=== PATIENT | female | born 1975 | race Hispanic/Latino ===

== ENCOUNTER → 2022-01-11 | Outpatient (CLI) | payer OTHER | END | disposition home or self-care (01) | LOC: SHCH 08:47 | PROVIDERS: ATTEND Internal Medicine Cardiovascular Disease | DX: I25.10 Atherosclerotic heart disease of native coronary artery without angina pectoris (principal) | CPT/HCPCS: 93306 ==

== ENCOUNTER 2024-06-28 16:59 | Emergency (ER) | payer OTHER, MEDICARE ==
[~2024-06-28] VITALS: Ht 157.5 cm; Wt 86.2 kg
[~2024-06-28 16:59] MED LIST: CEPH500C2 PO; DICY-20 PO; ONDA-104 PO; PANT40TA54 PO
--- NOTE | 2024-06-28 17:17 | ERN ---
ED Note History of Present Illness Stated Complaint: FEVER, HEADACHE, NAUSEA, ABD PAIN Time Seen by MD: 17:22 Time Seen by Midlevel: 17:05 Dictation: Ms. Joy is a 48-year-old female with a history of polycystic kidney disease/renal transplant, CKD, obesity, and GERD who presented to the emergency department this evening for evaluation of flu symptoms. Reports five days of fatigue, general weakness, fever, chills, headache, lower abdominal pain, nausea, vomiting, urinary frequency, and pruritus. She is status post renal transplant one year ago secondary to polycystic kidney disease. She denies having ill contacts or recent travel. She has taken no medications for her symptoms. She denies having shortness of breath, cough, chest pain, palpitations, edema, hematemesis, constipation, diarrhea, melena, hematochezia, hematuria, or dizziness. PCP: Dr Alondra Flores[facility] Trimmer Operator: Dr. Bel James Allergies: Coded Allergies: No Known Drug Allergies (Unverified Allergy, Unknown, 07/19/22) Home Meds Active Scripts Cephalexin (Cephalexin) 500 Mg Capsule, 500 MG PO BID, #14 CAP 0 Refills Prov:TOMY GUERRIER GIFT WRAPPER 08/05/22 Pantoprazole Sodium (Pantoprazole Sodium) 40 Mg Tablet.dr, 40 MG PO DAILY, #30 TAB 2 Refills Prov:TOMY GUERRIER GIFT WRAPPER 08/05/22 Dicyclomine HCl (Dicyclomine HCl) 10 Mg Capsule, 10 MG PO TIDP PRN for ABDOMINAL PAIN, #21 CAP 0 Refills Prov:TOMY GUERRIER GIFT WRAPPER 08/05/22 Ondansetron HCl (Ondansetron HCl) 4 Mg Tablet, 4 MG PO TIDP PRN for NAUSEA, #21 TAB 0 Refills Prov:TOMY GUERRIER GIFT WRAPPER 08/05/22 Past Medical History Past Medical History: GERD, Renal Disese, Renal Failure, Other Additional Past Medical Hx: CKD Surgical History: Appendectomy, Cholecystectomy, Other Surgical History Other: L KIDNEY RMEOVAL, UMBLICAL HERNIA, CATHETER FOR DILAYSIS PLACEMENT. PSYCH History: no pertinent psych hx Social History: Negative, Lives with family RN Note Reviewed/Agreed w/PFSH: Yes Review of System Dictation REVIEW OF SYSTEMS: CONSTITUTIONAL: Patient denies sweats and weight changes. Reports fatigue and general weakness. Reports fever and chills. EYES: Patient denies any visual symptoms. EARS, NOSE, AND THROAT: No difficulties with hearing. No symptoms of rhinitis or sore throat. CARDIOVASCULAR: Patient denies chest pains, palpitations, orthopnea and paroxysmal nocturnal dyspnea. RESPIRATORY: No dyspnea on exertion, no wheezing or cough. GI: No hematemesis, diarrhea, constipation, abdominal pain, hematochezia or melena. Reports lower abdominal pain with nausea and vomiting. : No urinary hesitancy or dribbling. No nocturia. No abnormal urethral discharge. No hematuria. S/P renal transplant 1 year ago. Reports frequent urination. MUSCULOSKELETAL: No myalgias or arthralgias. NEUROLOGIC: No chronic headaches, no seizures. Patient denies numbness, tingling or weakness. Reports dull headache. PSYCHIATRIC: Patient denies problems with mood disturbance. No problems with a nxiety. ENDOCRINE: No excessive urination or excessive thirst. DERMATOLOGIC: Patient denies any rashes or wounds. Reports itchy skin. Initial Vital Sign VS Vital Signs Date Time Temp Pulse Resp B/P (MAP) Pulse Ox O2 Delivery O2 Flow Rate FiO2 06/28/24 17:07 98.2 87 18 153/88 99 Room Air 0 06/28/24 17:25 21 Physical Exam Dictation Vital signs: Reviewed. Afebrile. Constitutional: No acute distress. Non-toxic appearing. Pleasant. Head/Face: Normocephalic, atraumatic. Eyes: Periorbital areas with no swelling, redness, or edema. Lids and lashes are normal. Conjunctival injection is absent. Sclera anicteric. Pupils equal, round, reactive to light. ENT: Pinnas intact and no signs of trauma or erythema. Ear canals clear and no discharge. TMs no erythema. No nasal discharge or bleeding noted. Oropharynx with no exudate, redness, swelling, masses, exudates, or evidence of obstruction. Uvula midline. Mucous membranes moist. Neck: Trachea midline, no masses palpated, and no cervical lymphadenopathy. No swelling. Supple, full range of motion. Chest/Axilla: No tenderness, no crepitus, no paradoxical movement, no retractions. Cardiovascular: Regular rate, regular rhythm, no murmur, no gallops. Symmetric pulses. No peripheral edema. BP elevated 153/88. Respiratory: Respirations even and unlabored. Lung sounds clear; no wheezes, rales or rhonchi. Room air spO2 99%. Gastrointestinal: Obese. No distention is appreciated. Bowel sounds are normal. No mass or organomegaly . Slight tenderness lower quadrants. No rebound. No rigidity. No voluntary or involuntary guarding. No Rizo's sign. Neurological: Normal speech, gross motor function intact, gross sensory function intact. No focal weakness/Paresthesia. Musculoskeletal/Extremities: All extremities have full range of motion, no pain or tenderness on palpation. Symmetric pulses. Integumentary: Intact. Skin is normal color, warm and dry. Cap refill less than 3 seconds. Results (Laboratory/Radiology) Laboratory/Radiology Laboratory Tests Test 06/28/24 17:18 White Blood Count 10.0 K/uL (4.8-10.8) Red Blood Count 4.71 MIL/uL (4.00-5.50) Hemoglobin 14.2 g/dL (12.0-16.0) Hematocrit 42.6 % (36-48) Mean Corpuscular Volume 90.4 fL (79-99) Mean Corpuscular Hemoglobin 30.1 pg (27.0-33.0) Mean Corpuscular Hemoglobin Concent 33.3 g/dL (32.0-36.0) Red Cell Distribution Width 12.4 % (11.0-15.5) Platelet Count 249 K/uL (130-400) Mean Platelet Volume 11.6 fL (7.5-10.5) H Immature Granulocyte % (Auto) 0.4 % (0-1) Neutrophils (%) (Auto) 84.4 % (40.0-77.0) H Lymphocytes (%) (Auto) 9.5 % (21.0-51.0) L Monocytes (%) (Auto) 5.3 % (3.0-13.0) Eosinophils (%) (Auto) 0.2 % (0.0-8.0) Basophils (%) (Auto) 0.2 % (0.0-5.0) Neutrophils # (Auto) 8.4 K/uL (1.8-7.7) H Lymphocytes # (Auto) 1.0 K/uL (1.0-4.8) Monocytes # (Auto) 0.5 K/uL (0.1-1.0) Eosinophils # (Auto) 0.02 K/uL (0.00-0.70) Basophils # (Auto) 0.02 K/uL (0.00-0.20) Absolute Immature Granulocyte (auto 0.04 K/uL (0-1) Nucleated Red Blood Cells 0.0 % (0.0-0.19) White Cell Morphology Comment See comments Urine Color LIGHT-YELLOW (YELLOW) Urine Appearance CLEAR (CLEAR) Urine pH 5.5 (5.0-8.0) Urine Specific [place] 1.012 (1.001-1.031) Urine Protein NEGATIVE mg/dL (NEGATIVE) Urine Glucose (UA) NEGATIVE mg/dL (NEGATIVE) Urine Ketones NEGATIVE mg/dL (NEGATIVE) Urine Occult Blood NEGATIVE (NEGATIVE) Urine Nitrate NEGATIVE (NEGATIVE) Urine Bilirubin NEGATIVE mg/dL (NEGATIVE) Urine Urobilinogen 0.2 mg/dL (0.2-1.0) Urine Leukocyte Esterase NEGATIVE Julián/uL Urine RBC None /HPF (0-1) Urine WBC 0-1 /HPF (0-1) Urine Squamous Epithelial Cells RARE /HPF (0-2) Urine Bacteria None /HPF (None Seen) Urine HCG, Qualitative NEGATIVE (NEGATIVE) Sodium Level 141 mmol/L (136-145) Potassium Level 3.9 mmol/L (3.5-5.1) Chloride Level 103 mmol/L (101-111) Carbon Dioxide Level 28 mmol/L (21-32) Blood Urea Nitrogen 31 mg/dL (7-18) H Creatinine 0.9 mg/dL (0.5-1.0) Glomerular Filtration Rate Calc 78 mL/min (>90) Random Glucose 115 mg/dL (70-105) H Total Calcium 9.9 mg/dL (8.5-10.1) Influenza Type A Antigen Negative For Type A Influenza Type B Antigen Negative For Type B SARS-CoV-2, RNA, NAAT NEGATIVE SARS CoV-2 Labs Reviewed?: Yes ED Course ED Course Orders Procedure Category Date Status Time Urinalysis Profile LAB 06/28/24 Complete 17:07 ,Urine Test LAB 06/28/24 Complete 17:07 Influenza Type A & B, LAB 06/28/24 Complete Rapid 17:07 Covid Rna Naat LAB 06/28/24 Complete 17:07 Cbc With Differential LAB 06/28/24 Complete 17:16 Basic Metabolic Panel LAB 06/28/24 Complete 17:16 0.9%Nacl 1000ml (Ns PHA 06/28/24 Complete 1000ml) 18:30 Current Medications Medications (Trade) Dose Ordered Sig/Preethi Route PRN Reason Start Time Stop Time Status Last Admin Dose Admin Sodium Chloride 1,000 ml @ 0 mls/hr ONCE ONCE IV 06/28/24 18:30 06/28/24 18:31 DC 06/28/24 18:21 Vital Signs Date Time Temp Pulse Resp B/P (MAP) Pulse Ox O2 Delivery O2 Flow Rate FiO2 06/28/24: 98.2 97 18 153/88 99 Room Air* 0 21 06/28/24 17:07 98.2 87 18 153/88 99 Room Air 0 Uneventful ED course. Vital signs initially with blood pressure 153/88; repeat 113/64. Remains afebrile. Laboratory findings as noted below. No elevation of WBCs. H&H are stable. BUN 30, BUN/CR ratio 34.4, and glucose 115. COVID and influenza A/B negative. Her abdominal pain minimal; declines CT. While in the ED she received NS 1000ml IV as bolus. Headache resolved. She states she is feeling better. Medical Decision Making MDM MDM: Differential diagnosis: COVID, influenza, UTI Rationale: Tests considered and ordered secondary to shared decision making include: Lab Previous outside records reviewed: Old ER visits. Risk of complication and/or morbidity or mortality of patient management: None Medications-Per medication reconciliation Need for hospitalization: Patient does not meet criteria for hospitalization. Need for emergency major/minor surgery: No There are no social concerns with this patient. Prescription drug management: OTC Tylenol Prescriptions will include symptomatic care Patient's prior external medical records from other ER visits were reviewed by juan short as indicated. Prior testing and results from previous visits were reviewed. Prior tests were taken into account with medical decision making and resource utilization, independent historian/historians were used to obtain complete medical history. I independently interpreted the test that were performed, results were reviewed by me and considered findings on radiology if ordered. Medical management and examination interpretation discussions were had by me with other qualified healthcare professionals as indicated for the patient's care. DX & DISP Disposition: Discharge Departure Impression: Primary Impression: Viral illness Additional Impressions: Post viral inflammatory response, Dehydration Condition: Stable Additional Instructions: Rest at home. Drink plenty of fluids. OTC Tylenol as needed for discomfort/fever. Follow up with your PCP at the [facility] (take copy of your labs). Return to the emergency department for any worsening of symptoms: Uncontrolled fever, worsening pain of the abdomen, nausea/vomiting. Referrals: JUAN FLORES MD (PCP) Time of Disposition: 18:26 MARVEL STONE NP June 28, 2024 17:16
[2024-06-28 17:43] LABS: ADD UA MICROSCOPIC YES; APPEARANCE,URINE CLEAR (CLEAR); BILIRUBIN,URINE NEGATIVE (NEGATIVE); COLOR,URINE LIGHT-YELLOW (YELLOW); GLUCOSE, URINE (UA) NEGATIVE (NEGATIVE); KETONES,URINE NEGATIVE (NEGATIVE); LEUKOCYTE ESTERASE ,URINE NEGATIVE Leu/uL (NEGATIVE); NITRATE,URINE NEGATIVE (NEGATIVE); OCCULT BLOOD,URINE NEGATIVE (NEGATIVE); PH,URINE 5.5 (5.0-8.0); PROTEIN,URINE NEGATIVE (NEGATIVE); UROBILINOGEN,URINE 0.2 mg/dL (0.2-1.0)
[2024-06-28 17:44] LABS: BASOPHILS # (AUTO) 0.02 K/uL (0.00-0.20); BASOPHILS % (AUTO) 0.2 % (0.0-5.0); EOSINOPHILS # (AUTO) 0.02 K/uL (0.00-0.70); EOSINOPHILS % (AUTO) 0.2 % (0.0-8.0); HEMATOCRIT 42.6 % (36-48); IMMATURE GRANULOCYTE ABSOLUTE 0.04 K/uL (0-1); LYMPHOCYTES % (AUTO) 9.5 % (21.0-51.0); MEAN CORPUSCULAR HEMOGLOBIN 30.1 pg (27.0-33.0); MEAN CORPUSCULAR HGB CONC 33.3 g/dL (32.0-36.0); MEAN CORPUSCULAR VOLUME 90.4 fL (79-99); MONOCYTES # (AUTO) 0.5 K/uL (0.1-1.0); MONOCYTES % (AUTO) 5.3 % (3.0-13.0); NEUTROPHILS # (AUTO) 8.4 K/uL (1.8-7.7); NEUTROPHILS % (AUTO) 84.4 % (40.0-77.0); PLATELET COUNT (AUTO) 249 K/uL (130-400); RED BLOOD CELL COUNT(AUTO) 4.71 MIL/uL (4.00-5.50); RED CELL DISTRIBUTION WIDTH 12.4 % (11.0-15.5); SQUAMOUS EPITHELIAL CELL,UR RARE /HPF (0-2); WBC,URINE 0-1 /HPF (0-1)
[2024-06-28 17:45] LABS: HCG,QUALITATIVE URINE NEGATIVE (NEGATIVE)
[2024-06-28 17:54] LABS: SARS-CoV-2, RNA, NAAT NEGATIVE SARS CoV-2 (NEGATIVE)
[2024-06-28 18:00] LABS: INFLUENZA TYPE A Negative For Type A (NEGATIVE); INFLUENZA TYPE B Negative For Type B (NEGATIVE)
[2024-06-28 18:02] LABS: CREATININE 0.9 mg/dL (0.5-1.0); POTASSIUM 3.9 mmol/L (3.5-5.1)
[2024-06-28] MEDS: 0.9%NACL 1000ML 1,000 ML IV ONE (18:21)
[2024-06-28 19:19] VITALS: BP 113/54; PULSE 71; RESP 18; TEMP 98; O2SAT 97
== END 2024-06-28 20:14 | disposition home or self-care (01) ==
LOC: EDH 16:59
DX: B34.9 Viral infection, unspecified (principal); E86.0 Dehydration; N18.9 Chronic kidney disease, unspecified; Z79.899 Other long term (current) drug therapy; Z90.49 Acquired absence of other specified parts of digestive tract; Z20.822 Contact with and (suspected) exposure to COVID-19
CPT/HCPCS: 99283; 96360; 87635; 96361; 80048; 85025; 87804 ×2; 81001; 81025; 36415; J7030